=== PATIENT | female | born 1955 | race Caucasian/White ===

== ENCOUNTER → 2016-07-31 | Outpatient (CLI) | payer OTHER, SELFPAY | LOC: RAD 10:08 | DX: M25.552 Pain in left hip (principal); M25.551 Pain in right hip; M54.5 Low back pain | CPT/HCPCS: 72110; 73522 ==

== ENCOUNTER → 2016-08-27 | Outpatient (CLI) | payer OTHER, SELFPAY | LOC: KOH-I 10:04 → US 10:30 → KOH-I 10:30 → US 08-28 13:30 | DX: R93.8 Abnormal findings on diagnostic imaging of other specified body structures (principal) | CPT/HCPCS: 93925; 93979 ==